=== PATIENT | male | born 1935 | race Caucasian/White ===

== ENCOUNTER 2016-09-17 05:42 | Outpatient (CLI) | payer MEDICARE ==
[~2016-09-17] VITALS: Ht 182.9 cm; Wt 83.0 kg
[2016-09-17] MEDS ORDERED: ASPI-586 PO (12:51)
[2016-09-17] MEDS ORDERED: LISI-552 PO (12:51)
== END 2016-09-17 12:53 ==
LOC: PREOP 05:42
PROVIDERS: ATTEND Surgery Pediatric Surgery
DX: Z01.818 Encounter for other preprocedural examination (principal); K92.1 Melena

== ENCOUNTER → 2016-09-19 | Day surgery (SDC) | payer MEDICARE ==
[~2016-09-19] VITALS: Ht 182.9 cm; Wt 83.0 kg
[~2016-09-19] MED LIST: ACETAMINOPHEN 325 MG TABLET/CAPLET (TYLENOL) PO PRN; ASPI-586 PO; FLUMAZENIL (ROMAZICON) 0.1 MG/ML 5 ML VIAL INJ PRN; HYDROcodone/APAP 5 MG/325 MG (LORTAB) TAB PO PRN; LISI-552 PO; NALOXONE 0.4 MG/ML 1 ML (NARCAN) VIAL IVP PRN; NS IV 500 ML 500 ML IV ONE; ONDANSETRON 4 MG/2 ML (SDV) Z0FRAN IV PRN; morphine INJ 10 MG/ML 1ML (SYR OR VIAL) IV PRN
--- OUTSIDE RECORDS SUMMARY | 2016-09-19 09:45 | XMS REPORT | Continuity of Care Document ---
Author Author [facility] Organization [facility] Address Unknown Phone Unavailable Support Name Relationship Address Phone MACI HELMS MD Caregiver [address] [place] [address] CINDI GREENFIELD Next Of Kin [address] [place] [address] Insurance Providers Payer Name Policy Number Subscriber Name Relationship Wps Medicare [id number] Kimani Greenfield 18 Self / Same As Patient Blue Cross Mcr Supp [id number] Kimani Greenfield 18 Self / Same As Patient Advance Directives Directive Response Recorded Date/Time Advance Directives No 09/17/16 12:47pm Health Care Power of Swing Frame Grinder Operator No 09/17/16 12:47pm Organ Donor No 09/17/16 12:47pm Resuscitation Status Full Code 09/17/16 12:47pm Problems No problem information available. Medications Current Home Medications Medication Dose Units Route Directions Days/Qty Instructions Start Date Lisinopril 20 Mg 20 Mg Oral Daily 09/17/16 Aspirin 81 Mg 81 Mg Oral Daily 09/17/16 Social History Social History Problem Response Recorded Date/Time Alcohol Use Occasionally Uses 09/17/2016 12:47pm Recreational Drug Use No 09/17/2016 12:47pm Recent Foreign Travel No 09/17/2016 12:47pm Recent Infectious Disease Exposure No 09/17/2016 12:47pm Sexually Transmitted Disease No 09/17/2016 12:47pm Smoking Status Former Smoker 09/17/2016 12:47pm Recent Hopitalizations No 09/17/2016 12:47pm Sexually Transmitted Disease No 09/17/2016 12:47pm Hx Sexually Transmitted Disorders No 06/15/2009 10:12am Query Response Start Date Stop Date Smoking Status Former Smoker Hospital Discharge Instructions No hospital discharge instructions. Plan of Care Discharge Date 09/17/16 12:53pm Prescriptions See Medication Section Functional Status No functional status results. Allergies, Adverse Reactions, Alerts No known allergies. Immunizations No immunization records. Vital Signs Acute Vital Signs Vital Response Date/Time Height (Feet) 6 feet 09/17/2016 12:46pm Height (Inches) 0.00 inches 09/17/2016 12:46pm Height (Calculated Centimeters) 182.018119 cm 09/17/2016 12:46pm Weight (Pounds) 183 pounds 09/17/2016 12:46pm Weight (Ounces) 0.0 oz 09/17/2016 12:46pm Weight (Calculated Grams) 64687.41 gm 09/17/2016 12:46pm Weight (Calculated Kilograms) 83.444952 kilograms 09/17/2016 12:46pm Calculated BMI 24.8 09/17/2016 12:46pm Results No known relevant diagnostic tests, laboratory data and/or discharge summary. Procedures No known history of procedures. Encounters Encounter Location Arrival/Admit Date Discharge/Depart Date Attending Provider Departed Clinic [facility] 09/17/16 5:42am 09/17/16 12: 53pm MACI HELMS MD
--- OUTSIDE RECORDS SUMMARY | 2016-09-19 09:45 | XMS REPORT | Continuity of Care Document ---
Author Author [facility] Organization [facility] Address Unknown Phone Unavailable Support Name Relationship Address Phone MACI HELMS MD Caregiver [address] [place] [address] CINDI GREENFIELD Next Of Kin [address] [place] [address] Insurance Providers Payer Name Policy Number Subscriber Name Relationship Wps Medicare [id number] Kimani Greenfield 18 Self / Same As Patient Blue Cross Mcr Supp [id number] Kimani Greenfield 18 Self / Same As Patient Advance Directives Directive Response Recorded Date/Time Advance Directives No 09/17/16 12:47pm Health Care Power of Cafeteria Team Leader No 09/17/16 12:47pm Organ Donor No 09/17/16 [...] 0.00 inches 09/17/2016 12:46pm Height (Calculated Centimeters) 182.788321 cm 09/17/2016 12:46pm Weight (Pounds) 183 pounds 09/17/2016 12:46pm Weight (Ounces) 0.0 oz 09/17/2016 12:46pm Weight (Calculated Grams) 98075.41 gm 09/17/2016 12:46pm Weight (Calculated Kilograms) 83.539181 kilograms 09/17/2016 12:46pm Calculated BMI 24.8 09/17/2016 12:46pm Results No known relevant diagnostic tests, laboratory data and/or discharge summary. Procedures No known history of procedures. Encounters Encounter Location Arrival/Admit Date Discharge/Depart Date Attending Provider Departed Clinic [facility] 09/17/16 5:42am 09/17/16 12: 53pm MACI HELMS MD
[2016-09-19 10:00] VITALS: BP 137/67
--- NOTE | 2016-09-19 10:33 | Progress Note-Pre Operative ---
Pre-Operative Progress Note H&P Reviewed The H&P was reviewed, patient examined and no changes noted. Date H&P Reviewed: Sep 19, 2016 Time H&P Reviewed: 10:30 Pre-Operative Diagnosis: rectal bleed MACI HELMS MD Sep 19, 2016 10:33 am
--- NOTE | 2016-09-19 10:33 | Conscious Sedation/ASA ---
Conscious Sedation Pre-Proced Time Reviewed: 10:30 ASA Class: 2 Airway Mallampati Classification: ([place] appropriate class) I. II. III, IV Lungs Heart ASA score ASA 1: a normal healthy patient ASA 2: a patient with a mild systemic disease (mid diabetes, controlled hypertension, obesity ASA 3: a patient with a severe systemic disease that limits activity (angina , COPD, prior Myocardial infarction) ASA 4: a patient with an incapacitating disease that is a constant threat to life (CHF, renal failure) ASA 5: a moribund patient not expected to survive 24 hrs. (ruptured aneurysm) ASA 6: a declared brain patient whose organs are being harvested. For emergent operations, add the letter E after the classification Grade 2 Sedation Plan: Analgesia, Amnesia, Plan communicated to team members, Discussed options with patient/fam, Discussed risks with patient/fam Note The patient is an appropriate candidate to undergo the planned procedure, sedation, and anesthesia. The patient immediately re-assessed prior to indication. MACI HELMS MD Sep 19, 2016 10:33 am
[2016-09-19] MEDS: fentaNYL INJECTION 100 MCG/2 ML AMP IVP PRN ×2 (11:24→11:26)
[2016-09-19] MEDS: MIDAZOLAM 2 MG/2 ML (VERSED) VIAL IVP PRN ×2 (11:25→11:39)
--- NOTE | 2016-09-19 12:17 | Progress Note-Post Operative ---
Post-Operative Progess Note Pre-Operative Diagnosis rectal bleed Post-Operative Diagnosis chronic stage 1 ext and int hemorrhoids, mild-moderate sigmoid diverticulosis. Post-Op Procedure Note Date of Procedure: Sep 19, 2016 Name of Procedure: Colonoscopy Anesthesia Type CS Estimated blood loss (mL): MACI Ware MD Sep 19, 2016 12:17
--- NOTE | 2016-09-19 12:18 | Discharge Inst-Surgical ---
D/C Lap Instructions-ANALIA Follow Up 10 years Activity as tolerated High Fiber Diet 25g or more per day Avoid Alcohol, Caffeine, Spicy Alda and Acid foods. Drink 64 fluid oz or more of fluids per day. Symptoms to Report: Fever over 101 degree F, Nausea/Vomiting If any problems/questions: Contact your physician or go to Emergency Room MACI HELMS MD Sep 19, 2016 12:18
[2016-09-19 12:20] VITALS: BP 121/62
[2016-09-19 12:45] VITALS: BP 140/79
[2016-09-19 12:50] VITALS: BP 140/79
--- NOTE | 2016-09-20 10:54 | OPERATIVE REPORT ---
PROCEDURE PHYSICIAN: MACI MENDOZA DATE OF PROCEDURE: 09/19/2016 ATTENDING PRIMARY CARE PHYSICIAN: Dr. Avila PREOPERATIVE DIAGNOSES: Heme positive stools. POSTOPERATIVE DIAGNOSIS: 1. Mild chronic stage I external and internal hemorrhoids. 2. Mild to moderate sigmoid diverticulosis. PROCEDURE: Colonoscopy. SURGEON: Dr. Mendoza. ANESTHESIA: Conscious sedation. ESTIMATED BLOOD LOSS: Minimal. FINDINGS: 1. Chronic stage I external and internal hemorrhoids. 2. Prostate gland was palpable and appeared normal. 3. There was a mild to moderate sigmoid diverticulosis with no mucosal inflammatory changes to indicate any active diverticulitis. 4. The remainder of the colon was normal. There were no polyps identified. DISPOSITION: The patient tolerated the procedure well. Mr. Chepe Wilder is a 81-year-old male in need of a follow-up screening colonoscopy. He reports that he does have occasional episodes of constipation. He does not report any known copious amounts of blood per rectum however, he did have a Hemoccult test done recently, which was positive. He does not report any family history of colon cancer. PROCEDURE: The patient was brought to the endoscopy suite, laid in the left lateral decubitus position. After adequate IV pain and sedative medications and conscious sedation anesthesia, a digital rectal examination was performed. Chronic stage I external and internal hemorrhoids were identified, which were not actively edematous or inflamed and no bleeding. Normal sphincter tone was felt and there were no palpable masses. Prostate gland was palpable and appeared normal. The endoscope was then intubated into the anus and the rectum gently insufflated. The endoscope was then advanced through the valves of Rivera of the rectum with no polyps or any neoplasms identified. The endoscope was then advanced through the sigmoid colon where a mild to moderate sigmoid diverticulosis was identified. There were no mucosal inflammatory changes to indicate any active diverticulitis. The endoscope was then advanced through the remainder of the descending, transverse, and ascending colon of the cecum. These segments were normal. There were no polyps or any neoplasms identified throughout the colon or rectum as well as no active bleeding sources. The endoscope was then slowly withdrawn while taking a second look and suctioning residual air with no additional findings. The patient tolerated the procedure well. We will recommend continued medical management with a high fiber diet with at least 25 to 30 grams of fiber per day, as well as at least 64 fluid ounces of water daily to promote soft stools on a daily basis. He does not need another colonoscopy for another 10 years. Job ID: [id number] Dictated Date: 09/19/2016 12:17:24 Professional Engineer Date: 09/20/2016 10:47:14 / horacio
== END | disposition home or self-care (01) ==
LOC: ENDO 09:39
PROVIDERS: ATTEND Surgery Pediatric Surgery
DX: K57.90 Diverticulosis of intestine, part unspecified, without perforation or abscess without bleeding (principal); K64.0 First degree hemorrhoids; I10 Essential (primary) hypertension; Z79.899 Other long term (current) drug therapy

== ENCOUNTER → 2020-11-29 | Outpatient (CLI) | payer MEDICARE ==
[~2020-11-29] MED LIST changes: -ACETAMINOPHEN 325 MG TABLET/CAPLET (TYLENOL) PO PRN; -FLUMAZENIL (ROMAZICON) 0.1 MG/ML 5 ML VIAL INJ PRN; -HYDROcodone/APAP 5 MG/325 MG (LORTAB) TAB PO PRN; -LISI-552 PO; +LISI20TA26 PO; -NALOXONE 0.4 MG/ML 1 ML (NARCAN) VIAL IVP PRN; -NS IV 500 ML 500 ML IV ONE; -ONDANSETRON 4 MG/2 ML (SDV) Z0FRAN IV PRN; -morphine INJ 10 MG/ML 1ML (SYR OR VIAL) IV PRN
--- NOTE | 2020-11-29 14:59 | Diagnostic Imaging Report ---
INDICATION: Claudication. Smoking history. FINDINGS: Ankle brachial indices were performed. The brachial blood pressure was 121 on the right and 115 on the left. The ankle blood pressure was 157 on the right and 154 on the left. The ankle brachial indices were all above 1.0. IMPRESSION: Normal ankle brachial indices with no indication of hemodynamic stenosis. Dictated by: Dictated on workstation # [id number]
== END ==
LOC: CARD 13:00
PROVIDERS: ATTEND Internal Medicine Cardiovascular Disease
DX: I73.9 Peripheral vascular disease, unspecified (principal); R00.1 Bradycardia, unspecified; R06.09 Other forms of dyspnea; Z87.891 Personal history of nicotine dependence
CPT/HCPCS: 93225; 93226; 93306; 93923

== ENCOUNTER → 2020-12-09 | Outpatient (CLI) | payer MEDICARE ==
[~2020-12-09] VITALS: Ht 172 cm; Wt 86.0 kg
[~2020-12-09] MED LIST changes: +REGADENOSON 0.4 MG/5 ML SYR (LEXISCAN) IV ONE
[2020-12-09] MEDS: CATHETER FLUSH 10 ML SYR IV PRN ×2 (07:12→08:40)
[2020-12-09 08:39] VITALS: BP 106/68
--- NOTE | 2020-12-12 13:53 | STRESS TEST ---
DATE OF SERVICE: 12/09/2020 RESTING AND POST REGADENOSON TECHNETIUM-99M TETROFOSMIN SPECT CT IMAGING PRIMARY PHYSICIAN: Dr. Vences. CLINICAL DIAGNOSIS: Shortness of breath. Baseline images were carried out after injection of 10.026 mCi of technetium-99 Tetrofosmin. This was followed by 0.4 mg of Regadenoson and 28.2 mCi of technetium-99m Tetrofosmin for stress imaging. The electrocardiogram showed sinus rhythm with frequent premature ventricular contractions throughout the study. The frequency of premature ventricular contractions precluded gaiting. Review of images at rest and following stress does not indicate any significant perfusion defects consistent with myocardial ischemia or infarction. CONCLUSIONS: 1. No evidence of significant myocardial ischemia or infarction on this study. 2. Gaiting could not be performed due to very frequent premature ventricular contractions during the study. Job ID: [id number] DocumentID: [id number] Dictated Date: 12/12/2020 13:04:28 Machine Assembler Supervisor Date: 12/12/2020 13:43:12 Dictated By: TRAY VENCES MD, MA, FACP, FACC,
== END ==
LOC: CARD 07:30
PROVIDERS: ATTEND Internal Medicine Cardiovascular Disease
DX: R06.09 Other forms of dyspnea (principal)
CPT/HCPCS: 78452; A9502

== ENCOUNTER 2023-05-12 12:29 | Emergency (ER) | payer MEDICARE ==
[~2023-05-12] VITALS: Ht 182 cm; Wt 90.7 kg
[~2023-05-12 12:29] MED LIST changes: -REGADENOSON 0.4 MG/5 ML SYR (LEXISCAN) IV ONE
--- NOTE | 2023-05-12 12:58 | ED GU-Male ---
General Chief Complaint: - Reproductive Stated Complaint: BLOOD IN URINE Nursing Triage Note: ARRIVED VIA AMB TO ROOM 02 WITH COMPLAINTS OF BLOOD IN HIS URINE STARTING ET SATURDAY. SENT FROM WALK IN. WALK IN CALLED ET STATES PT HAS A HX OF BLADDER CANCER. Source: patient Exam Limitations: no limitations History of Present Illness Date Seen by Provider: May 12, 2023 Time Seen by Provider: 12:47 Initial Comments 87-year-old male presents emerged department today for gross hematuria. Symptoms started on Saturday and have been persistent. He is on a baby aspirin but no other blood thinning medications. He denies any fevers or chills. He has no abdominal pain. He is concerned because he has a history of "cancer outside of my bladder." This was in 2009 and was "removed by Dr. Candelaria." He states this was found secondary to microscopic hematuria. This is the first time he had gross hematuria. No dysuria but he does have decreased urine output. All other systems reviewed and negative except documented per HPI. Voice recognition software was used to help create this chart Allergies and Home Medications Allergies Coded Allergies: No Known Drug Allergies (Unverified , 06/13/09) Patient Home Medication List Home Medication List Reviewed: Yes Aspirin (Aspir 81) 81 Mg Tablet.dr, 81 MG PO DAILY, (Reported) Entered as Reported by: MEHUL BEARD on 09/17/16 1251 Lisinopril (Lisinopril) 20 Mg Tablet, 20 MG PO DAILY, (Reported) Entered as Reported by: MEHUL BEARD on 09/17/16 1251 Review of Systems Review of Systems Constitutional: see HPI Past Pocbbcm-[place]-Hplwpv Hx Patient Social History Tobacco Use?: No Use of E-Cig and/or Vaping dev: No Substance use?: No Alcohol Use?: No Seasonal Allergies Seasonal Allergies: No Past Medical History Gallbladder, Joint Replacement Hypertension Reproductive Disorders: No Sexually Transmitted Disease: No Physical Exam Vital Signs Vital Signs - First Documented 05/12/23 12:35 Temp 35.0 Pulse 78 Resp 16 B/P (MAP) 161/91 (114) Pulse Ox 97 O2 Delivery Room Air Capillary Refill : Less Than 3 Seconds Height, Weight, BMI Height: 6'0.00" Weight: 183lbs. 0.0oz. 83.006850dn; 27.00 BMI Method: General Appearance: WD/WN, no apparent distress HEENT: normal ENT inspection, pharynx normal Neck: non-tender, supple Cardiovascular: regular rate, rhythm, no murmur Respiratory: chest non-tender, lungs clear, normal breath sounds Gastrointestinal: normal bowel sounds, non tender, soft, no organomegaly Extremities: normal capillary refill Neurologic/Psychiatric: alert, normal mood/affect Skin: normal color, warm/dry Progress/Results/Core Measures Suspected Sepsis SIRS Temperature: Pulse: 78 Respiratory Rate: 16 Laboratory Tests 05/12/23 13:03: White Blood Count 7.0 Blood Pressure 161 /91 Mean: 114 Laboratory Tests 05/12/23 13:03: Creatinine 0.83, Platelet Count 204 Results/Orders Lab Results Laboratory Tests Test 05/12/23 13:03 05/12/23 13:35 Range/Units White Blood Count 7.0 4.3-11.0 10^3/uL Red Blood Count 4.34 4.30-5.52 10^6/uL Hemoglobin 13.7 13.3-17.7 g/dL Hematocrit 43 40-54 % Mean Corpuscular Volume 98 80-99 fL Mean Corpuscular Hemoglobin 32 25-34 pg Mean Corpuscular Hemoglobin Concent 32 32-36 g/dL Red Cell Distribution Width 11.8 10.0-14.5 % Platelet Count 204 130-400 10^3/uL Mean Platelet Volume 10.8 9.0-12.2 fL Immature Granulocyte % (Auto) 0 % Neutrophils (%) (Auto) 67 42-75 % Lymphocytes (%) (Auto) 22 12-44 % Monocytes (%) (Auto) 8 0-12 % Eosinophils (%) (Auto) 2 0-10 % Basophils (%) (Auto) 0 0-10 % Neutrophils # (Auto) 4.7 1.8-7.8 10^3/uL Lymphocytes # (Auto) 1.5 1.0-4.0 10^3/uL Monocytes # (Auto) 0.6 0.0-1.0 10^3/uL Eosinophils # (Auto) 0.2 0.0-0.3 10^3/uL Basophils # (Auto) 0.0 0.0-0.1 10^3/uL Immature Granulocyte # (Auto) 0.0 0.0-0.1 10^3/uL Sodium Level 140 135-145 MMOL/L Potassium Level 3.6 3.6-5.0 MMOL/L Chloride Level 109 H 98-107 MMOL/L Carbon Dioxide Level 22 21-32 MMOL/L Anion Gap 9 5-14 MMOL/L Blood Urea Nitrogen 22 H 7-18 MG/DL Creatinine 0.83 0.60-1.30 MG/DL Estimat Glomerular Filtration Rate 86 BUN/Creatinine Ratio 27 Glucose Level 106 H 70-105 MG/DL Calcium Level 8.7 8.5-10.1 MG/DL Urine Color RED H Urine Clarity CLOUDY Urine pH 5.5 5-9 Urine Specific Ryan 1.025 H 1.016-1.022 Urine Protein 3+ H NEGATIVE Urine Glucose (UA) NEGATIVE NEGATIVE Urine Ketones TRACE H NEGATIVE Urine Nitrite NEGATIVE NEGATIVE Urine Bilirubin 1+ H NEGATIVE Urine Urobilinogen 4.0 < = 1.0 MG/DL Urine Leukocyte Esterase NEGATIVE NEGATIVE Urine RBC (Auto) 3+ H NEGATIVE Urine RBC TNTC H /HPF Urine WBC NONE /HPF Urine Squamous Epithelial Cells NONE /HPF Urine Crystals NONE /LPF Urine Bacteria NEGATIVE /HPF Urine Casts NONE /LPF Urine Mucus NEGATIVE /LPF Urine Culture Indicated NO My Orders Orders - JAILYN MOSELEY DO Ua Culture If Indicated (05/12/23 12:32) Ct Abdomen/Pelvis W (05/12/23 12:56) Cbc With Automated Diff (05/12/23 12:56) Basic Metabolic Panel (05/12/23 12:56) Iohexol Injection (Omnipaque 350 Mg/Ml 1 (05/12/23 14:15) Received Contrast (Hold Metformin- Contr (05/12/23 14:15) Ns (Ivpb) 100 Ml (Sodium Chloride 0.9% 1 (05/12/23 14:15) Medications Given in ED Current Medications Medications Dose Ordered Sig/Su Route Start Time Stop Time Status Last Admin Dose Admin Iohexol 100 ml ONCE ONCE IV 05/12/23 14:15 05/12/23 14:16 DC 05/12/23 14:07 80 ML Sodium Chloride 100 ml ONCE ONCE IV 05/12/23 14:15 05/12/23 14:16 DC 05/12/23 14:07 100 ML Vital Signs/I&O 05/12/23 12:35 Temp 35.0 Pulse 78 Resp 16 B/P (MAP) 161/91 (114) Pulse Ox 97 O2 Delivery Room Air Capillary Refill : Less Than 3 Seconds Blood Pressure Mean: 114 Departure Communication (Admissions) Patient is hemodynamically stable. He does have gross hematuria but is urinating well with no blood clots. No evidence for infection based on his urinalysis. CT scan shows irregularity of the inferior portion of his bladder which may be concerning for recurrence. He is not anemic at this time. His chemistry and renal function are normal. We will go ahead and refer him to urology as his previous urologist has retired. He is advised to return for inability to urinate or symptoms consistent with anemia, or if his symptoms change in any way concerning to him. Impression Primary Impression: Gross hematuria Disposition: HOME, SELF-CARE Condition: Stable Departure-Patient Inst. Referrals: Loi MARTIN MD NO,LOCAL PHYSICIAN (PCP) Primary Care Physician Patient Instructions: Blood in Urine (Hematuria), Adult ED Add. Discharge Instructions: As discussed your CT scan shows an irregularity of her bladder. I recommend you follow-up with urology for further evaluation and treatment. Your urine does not show any evidence for infection at this time. Return to the emergency department for inability to urinate, dizziness or lightheadedness, shortness of breath or if your symptoms change in any way concerning to you follow-up with your primary doctor for any nonemergent needs All discharge instructions reviewed with patient and/or family. Voiced understanding. Scripts Tamsulosin HCl (Flomax) 0.4 Mg Cap 0.4 MG PO DAILY for 30 Days, #30 CAP Prov: JAILYN MOSELEY DO 05/12/23 JAILYN MOSELEY DO May 12, 2023 12:58
[2023-05-12 13:10] LABS: BASOPHILS % (AUTO) 0 % (0-10); EOSINOPHILS # (AUTO) 0.2 10^3/uL (0.0-0.3); EOSINOPHILS % (AUTO) 2 % (0-10); HEMATOCRIT 43 % (40-54); HEMOGLOBIN 13.7 g/dL (13.3-17.7); LYMPHOCYTES # (AUTO) 1.5 10^3/uL (1.0-4.0); LYMPHOCYTES % (AUTO) 22 % (12-44); MEAN CORPUSCULAR HEMOGLOBIN 32 pg (25-34); MEAN CORPUSCULAR HGB CONC 32 g/dL (32-36); MEAN CORPUSCULAR VOLUME 98 fL (80-99); MEAN PLATELET VOLUME 10.8 fL (9.0-12.2); MONOCYTES # (AUTO) 0.6 10^3/uL (0.0-1.0); MONOCYTES % (AUTO) 8 % (0-12); NEUTROPHILS # (AUTO) 4.7 10^3/uL (1.8-7.8); NEUTROPHILS % (AUTO) 67 % (42-75); PLATELET COUNT 204 10^3/uL (130-400)
[2023-05-12 13:22] LABS: POTASSIUM 3.6 MMOL/L (3.6-5.0)
[2023-05-12 13:23] LABS: CALCIUM 8.7 MG/DL (8.5-10.1)
[2023-05-12 13:27] LABS: CREATININE SERUM 0.83 MG/DL (0.60-1.30)
[2023-05-12 13:52] LABS: CLARITY,URINE CLOUDY; COLOR,URINE RED; PH,URINE 5.5 (5-9)
[2023-05-12 13:53] LABS: BACTERIA,URINE NEGATIVE /HPF; BILIRUBIN,URINE 1+ (NEGATIVE); GLUCOSE, URINE (UA) NEGATIVE (NEGATIVE); KETONES,URINE TRACE (NEGATIVE); LEUKOCYTE ESTERASE ,URINE NEGATIVE (NEGATIVE); NITRITE,URINE NEGATIVE (NEGATIVE); PROTEIN,URINE 3+ (NEGATIVE); RBC,URINE TNTC /HPF
[2023-05-12] MEDS ORDERED: HOLD METFORMIN - RECEIVED CONTRAST 20 ML VIAL IV SCH (14:15)
[2023-05-12] MEDS ORDERED: NS 100 ML (IVPB) BAG IV ONE (14:15)
[2023-05-12] MEDS ORDERED: IOHEXOL 350 MG/ML 100 ML (OMNIPAQUE 350) VIAL IV ONE (14:15)
--- NOTE | 2023-05-12 14:27 | Diagnostic Imaging Report ---
EXAMINATION: CT abdomen and pelvis with intravenous contrast. TECHNIQUE: Multiple contiguous axial images were obtained through the abdomen and pelvis after the uneventful administration of intravenous contrast. All CT scans use one or more of the following dose optimizing techniques: automated exposure control, MA and/or KvP adjustment based on patient size and exam type or iterative reconstruction. HISTORY: Hematuria, r/o bladder cancer. COMPARISON: None available. FINDINGS: Lung bases: Bibasilar dependent atelectasis. Solid organs: The liver is normal without focal lesion. The gallbladder is surgically absent. There is no biliary ductal dilation. Pancreas is normal. Spleen is normal. Adrenal glands are normal. There are bilateral renal cysts present. No hydronephrosis. There is normal patent appearance of the visualized ureters. Bowel: A prominent duodenal diverticulum is present. No bowel obstruction. The colon is normal. The appendix is normal. Peritoneum: There is no intraperitoneal free fluid or free air. No suspicious lymphadenopathy. Vasculature: Calcification of the aorta without aneurysm. Musculoskeletal: Degenerative changes and curvature of the spine without suspicious osseous lesion. Pelvis: The prostate gland is normal. There is abnormal bladder wall thickening with nodular wall thickening seen within the right inferior bladder (series 4 image 146). IMPRESSION: 1. Abnormal nodular thickening of the inferior right urinary bladder, concerning for residual or recurrent bladder cancer. 2. Multiple bilateral renal cysts; otherwise, unremarkable appearance of the kidneys without hydronephrosis. Dictated by: Dictated on workstation # [id number]
[2023-05-12] MEDS ORDERED: TAMSULOSIN 0.4 MG (FLOMAX) CAP PO STA (14:36)
[2023-05-12] MEDS ORDERED: TMSL.4C PO (14:36)
[2023-05-12 14:55] VITALS: BP 141/98
== END 2023-05-12 14:55 | disposition home or self-care (01) ==
LOC: EDUNIT# 12:29 → ER 12:33
DX: R31.0 Gross hematuria (principal); Z79.82 Long term (current) use of aspirin
CPT/HCPCS: 36415; 74177; 80048; 81000; 85025